=== PATIENT | female | born 1985 | race American Indian/Alaskan Native ===

== ENCOUNTER 2021-01-29 11:59 | Emergency (ER) | payer OTHER ==
--- NOTE | 2021-01-29 14:30 | Emergency Department Report ---
ED Head Trauma HPI - General Chief complaint: Head Injury Stated complaint: CEILING FELL ON HEAD Source: patient Mode of arrival: Ambulatory Limitations: No Limitations - History of Present Illness Initial comments: 35-year-old -Serbian female presents to the emergency room stating she has a the patient presents to the emergency room department with a mild headache. Patient states that the ceiling of her apartment fell in on her head while she was in the shower. Patient states he has been leaking for a while and she had informed maintenance at her apartment. Patient denies any loss of consciousness denies any nausea no vomiting no change of vision. She states this happened about 9 AM. She currently takes no medications on a daily basis did not take anything for her headache. She denies any chest pain shortness of breath no neck pain. She has no known drug allergies. MD Complaint: head injury -: This morning Time: 09:00 Mechanism of Injury: other (Ceiling fell) Location: frontal Loss of Consciousness: no Previous Trauma to this Area: No Place: home (In her shower) Radiation: none Severity: mild Severity scale (0 -10): 4 Quality: aching Consistency: intermittent Provoking factors: none known Other Injuries: none Associated Symptoms: denies other symptoms. denies: amnesia, repetitive questioning, vision changes, nausea, vomiting, numbness, neck pain - Related Data Allergies/Adverse reactions: Allergies Allergy/AdvReac Type Severity Reaction Status Date / Time No Known Allergies Allergy Unverified 01/29/21 12:00 ED Review of Systems ROS: Stated complaint: CEILING FELL ON HEAD Other details as noted in HPI Comment: All other systems reviewed and negative ED Past Medical Hx - Past Medical History Previous Medical History?: No - Surgical History Past Surgical History?: No - Social History Smoking Status: Never Smoker Substance Use Type: None ED Physical Exam - General Limitations: No Limitations General appearance: alert, in no apparent distress - Head Head exam: Present: atraumatic, normocephalic - Eye Eye exam: Present: normal appearance, PERRL, EOMI - ENT ENT exam: Present: mucous membranes moist - Neck Neck exam: Present: normal inspection, full ROM. Absent: tenderness - Respiratory Respiratory exam: Absent: accessory muscle use - Cardiovascular Cardiovascular Exam: Present: regular rate - Extremities Exam Extremities exam: Present: normal inspection, full ROM - Back Exam Back exam: Present: normal inspection, full ROM. Absent: tenderness, muscle spasm - Neurological Exam Neurological exam: Present: alert, oriented X3, CN II-XII intact, normal gait - Expanded Neurological Exam Expanded Cranial nerves: EOM's Intact: Normal, Gag Reflex: Normal, Tongue Deviation: Normal, Nystagmus: Normal, Facial Sensation: Normal, Facial Palsy with Forehead Movement: Normal, Facial Palsy without Forehead Movement: Normal Cerebellar function: Finger to Nose: Normal, Heel to [place]: Normal, Romberg: Normal Upper motor neuron: [place] Neglect: Normal, Pronator Drift: Normal, Babinski Sign: Normal, Sensory Extinction: Normal Sensory exam: Upper Extremity Light Touch: Normal, Upper Extremity Pin Prick: Normal, Upper Extremity Temperature: Normal, UE 2 Point Discrimination: Normal, Lower Extremity Light Touch: Normal, Lower Extremity Pin Prick: Normal, Lower Extremity Temperature: Normal, LE 2 Point Discrimination: Normal Motor strength exam: RUE: 4, LUE: 4, RLE: 4, LLE: 4 Best Eye Response ([place]): (4) open spontaneously Best Motor Response ([place]): (6) obeys commands Best Verbal Response ([place]): (5) oriented [place] Total: 15 - Psychiatric Psychiatric exam: Present: normal affect, normal mood - Skin Skin exam: Present: warm, dry, intact, normal color. Absent: rash ED Course Vital Signs 01/29/21 12:03 Temperature 98.9 F Pulse Rate 87 Respiratory 18 Rate Blood Pressure 150/101 O2 Sat by Pulse 100 Oximetry - Medical Decision Making 35-year-old -Serbian female presents to the emergency room stating she has a the patient presents to the emergency room department with a mild headache. Patient states that the ceiling of her apartment fell in on her head while she was in the shower. Patient states he has been leaking for a while and she had informed maintenance at her apartment. Patient denies any loss of consciousness denies any nausea no vomiting no change of vision. She states this happened about 9 AM. She currently takes no medications on a daily basis did not take anything for her headache. She denies any chest pain shortness of breath no neck pain. She has no known drug allergies. Patient has a complete normal examination with normal neuro exam. Discussed with patient she can take Tylenol ibuprofen for headache. Recommend for her to follow-up with her primary care provider. Critical care attestation.: If time is entered above; I have spent that time in minutes in the direct care of this critically ill patient, excluding procedure time. ED Disposition Clinical Impression: Minor head injury without loss of consciousness Disposition: DC-01 TO HOME OR SELFCARE Is pt being admited?: No Does the pt Need Aspirin: No Condition: Stable Instructions: Head Injury, Adult, [id number] Additional Instructions: Examination is within normal limits. I do recommend Tylenol ibuprofen. If your symptoms become severe please return back to the emergency room for reevaluation. Referrals: [facility] [Provider Group] - 3-5 Days ZEYNEP HUNT II, MD [Staff Physician] - 3-5 Days Forms: Work/School Release Form(ED)
== END 2021-01-29 16:24 | disposition home or self-care (01) ==
LOC: ED 11:59
CPT/HCPCS: 99282